=== PATIENT | female | born 1990 | race Caucasian/White ===

== ENCOUNTER 2018-03-26 18:48 | Emergency (ER) | payer MEDICAID, OTHER ==
[~2018-03-26] VITALS: Ht 160 cm; Wt 58.6 kg
[2018-03-26 19:04] VITALS: BP 129/83
[2018-03-26] MEDS ORDERED: DESO1TAB70 PO (19:29)
[2018-03-26] MEDS ORDERED: METH10OR3 PO (19:29)
== END 2018-03-26 19:39 | disposition home or self-care (01) ==
LOC: ED 19:33
DX: J00 Acute nasopharyngitis [common cold] (principal); H92.01 Otalgia, right ear
CPT/HCPCS: 99283

== ENCOUNTER 2018-10-05 20:24 | Emergency (ER) | payer MEDICAID ==
[~2018-10-05] VITALS: Ht 160 cm; Wt 57.9 kg
[2018-10-05 22:23] VITALS: BP 115/71
== END 2018-10-06 00:20 | disposition home or self-care (01) ==
LOC: ED 23:59
DX: N30.00 Acute cystitis without hematuria (principal); F17.210 Nicotine dependence, cigarettes, uncomplicated
CPT/HCPCS: 36415; 80053; 81001; 84703; 85025; 87077; 87086; 87186; 99283